=== PATIENT | male | born 1965 | race Caucasian/White ===

== ENCOUNTER 2020-10-28 22:46 | Emergency (ER) | payer MEDICAID, MEDICARE, OTHER ==
[~2020-10-28] VITALS: Ht 180.3 cm; Wt 86.4 kg
--- NOTE | 2020-10-29 00:26 | NUR ---
suprapubic catheter exchange done by Niharika NEIL
[2020-10-29 00:35] LABS: MICROSCOPIC INDICATED
[2020-10-29] MEDS ORDERED: SULFAMETH./TRIMETHOPRIM DS 800MG/160MG TABLET PO ONE (01:00)
--- NOTE | 2020-10-29 02:59 | NUR ---
report given to Charlie NEIL
[2020-10-29] MEDS ORDERED: SULFAMETH./TRIMETHOPRIM DS 800MG/160MG TABLET ONE (03:14)
--- NOTE | 2020-10-29 03:15 | NUR ---
PT ASLEEP IN BED, ALL NEEDS IN [place], CALL LIGHT IN REACH, NAD AT THIS TIME, VSS
--- NOTE | 2020-10-29 05:41 | NUR ---
PT WOKE UP SCREAMING, "HELP, HELP", WHEN THIS RN WALKED INTO THE ROOM PT WAS UPSET THAT HE WAS STILL HERE AT THE HOSPITAL, THIS RN EXPLAINED THAT [facility] IS SUPPOSED TO PICK HIM UP BUT THE TIME IS NOT KNOW RIGHT NOW, PT UPSET STATING HE SHOULDNT BE HERE, THIS RN EXPLAINED SOON [facility] IS AVAILABLE THEY WILL COME PICK HIM UP
--- NOTE | 2020-10-29 07:05 | NUR ---
assumed care of pt. report from Charlie NEIL pt here for exchange of [employer] suprapubic catheter. tube was replaced last nocs and pt is awaiting medical transport to home as he is a quadraplegic and does not currently have his WC with him. per pt he is bed-bound. pt has been having episodes of sleeping and then begins yelling when he wakes up pt has recently been turned for positioning and comfort. resting on L side no family at bedside. updated on POC
[2020-10-29 07:32] VITALS: BP 127/82
== END 2020-10-29 07:35 | disposition home or self-care (01) ==
LOC: ED 23:59
DX: T85.618A Breakdown (mechanical) of other specified internal prosthetic devices, implants and grafts, initial encounter (principal); L03.818 Cellulitis of other sites
CPT/HCPCS: 81001; 87070; 87077; 87086; 87186; 87205; 99285